=== PATIENT | male | born 1960 | race Caucasian/White ===

== ENCOUNTER 2016-07-02 07:43 | Day surgery (SDC) | payer MEDICARE, OTHER ==
[~2016-07-02 07:43] MED LIST: CEFAZOLIN 1 GM/D5W RTU 1 GM/50 ML RTUPB IV PRN
[2016-07-02] MEDS ORDERED: WATER FOR INJECTION,STERILE 10 ML SDV ONE (08:31)
[2016-07-02] MEDS ORDERED: BACITRACIN INJ 50,000 UNIT VIAL ONE (08:31)
[2016-07-02] MEDS ORDERED: POLYMYXIN B SULFATE INJ 500000 UNIT VIAL ONE (08:31)
[2016-07-02] MEDS ORDERED: BUPIVACAINE HCL 0.5 % INJ/PF 30 ML SDV ONE (08:32)
[2016-07-02] MEDS ORDERED: LIDOCAINE 2% INJ (20 MG/ML) 20 ML MDV ONE (08:33)
[2016-07-02] MEDS ORDERED: MIDAZOLAM 2 MG/2 ML INJ ONE (08:38)
[2016-07-02] MEDS ORDERED: PROPOFOL INJ 200 MG/20 ML VIAL IV ONE (08:39)
[2016-07-02] MEDS ORDERED: FENTANYL CITRATE INJ/PF 100 MCG/2 ML AMPUL ONE (08:39)
[2016-07-02] MEDS ORDERED: LIDOCAINE 2% INJ-PF (20 MG/ML) 10 ML AMPUL ONE (08:39)
[2016-07-02] MEDS ORDERED: ONDANSETRON HCL INJ/PF 4 MG/2 ML SDV ONE (08:39)
--- NOTE | 2016-07-02 10:33 | [facility] OPERATIVE REPORT E ---
[facility] Operative Report NAME: JARRED ZIMMERMAN AGE: 55Y DATE OF SURGERY: 07/02/2016 ROOM: PREOPERATIVE DIAGNOSIS: BENIGN NEOPLASM, RIGHT FOOT. POSTOPERATIVE DIAGNOSIS: BENIGN NEOPLASM, RIGHT FOOT. SURGICAL PROCEDURE Excision of benign neoplasm, right foot. SURGEON: GWEN VALE DPM REPAIR SPECIALIST: DAVE MARINO DPM PROCEDURE: Following induction of IV regional local anesthesia, the right foot and ankle were prepped and draped in the usual sterile manner. A pneumatic tourniquet was placed around the right ankle and inflated to 250 mmHg after exsanguination of the limb via Esmarch bandage. The following surgical procedure was then performed: Excision of benign mass right foot. Attention was directed to the dorsal aspect of the right foot where an approximately 3 cm elliptical incision was made surrounding the neoplasm. The incision was deepened via sharp dissection and the neoplasm and skin were removed in toto. The area was examined and it was noted that there was no evidence of the mass invading into the underlying structures. The skin was then was undermined medially and laterally. The area was then flushed with copious amounts of an antibacterial saline solution. The subcutaneous tissue was then coapted and maintained utilizing simple interrupted sutures of 4-0 Vicryl and the skin was coapted and maintained utilizing horizontal mattress sutures of 5-0 nylon. The foot was then cleansed with an antiseptic foam. A dry sterile dressing was then applied consisting of Cash silk, 4 x 4, Conform, Kerlix, and Coban. The pneumatic tourniquet was released, it was noted that all digits were warm and viable and the patient was transferred to the recovery room. DICTATING PHYSICIAN: GWEN VALE D.P.M. [id number] PHY#: [id number] ID: [id number] JOB#: [id number] ACCT: [id number] cc:GWEN VALE DPM > LUCIANA
--- NOTE | 2016-07-02 11:33 | [facility] DISCHARGE SUMMARY E ---
[facility] Discharge Summary NAME: JARRED ZIMMERMAN AGE: 55Y ADMITTED: 07/02/2016 DISCHARGED: 07/02/2016 SURGICAL PROCEDURE: Excision of benign mass, right foot. POSTOPERATIVE DIAGNOSIS: Benign neoplasm, right foot. SURGEON: Gwen Elizabeth DPM RULES EXAMINER Steven Webb DPM HOSPITAL COURSE: The patient was admitted to [facility] of [place] with the chief complaint of a painful mass on top of his right foot. Patient stated that he has had it for a number of years and that it was starting to become painful, especially whenever he had to wear his boots. Patient desired to have this mass surgically removed. Patient underwent the above surgical procedure without any complications and was transferred to the recovery room. He discharged with a surgical shoe, an ice pack, postoperative instructions, and postoperative prescriptions for Percocet 5/325 mg #40, and Phenergan 25 mg #20. He was given a follow-up appointment in the doctor's office in 1 week. Patient was discharged from [facility]. DICTATING PHYSICIAN: GWEN ELIZABETH D.P.M. [id number] PHY#: [id number] ID: [id number] JOB#: [id number] ACCT: [id number] cc:GWEN ELIZABETH DPM >
== END 2016-07-02 10:47 | disposition home or self-care (01) ==
LOC: SC 07:43
PROVIDERS: ATTEND Podiatrist Foot Surgery
PROC: 0HBMXZZ Excision of Right Foot Skin, External Approach (ICD-10-PCS; principal; 2016-07-02 08:45)
DX: D21.21 Benign neoplasm of connective and other soft tissue of right lower limb, including hip (principal); I10 Essential (primary) hypertension; E05.90 Thyrotoxicosis, unspecified without thyrotoxic crisis or storm; I48.91 Unspecified atrial fibrillation; N40.0 Benign prostatic hyperplasia without lower urinary tract symptoms; I47.1 Supraventricular tachycardia; Z79.899 Other long term (current) drug therapy; Z79.01 Long term (current) use of anticoagulants; Z79.51 Long term (current) use of inhaled steroids
CPT/HCPCS: 11420; J2250; J3490 ×5; J0690; J3010; J2405; J2704; 1470; 88305; 88341; 88342